=== PATIENT | male | born 1965 | race Caucasian/White ===

== ENCOUNTER 2016-09-16 14:22 | Inpatient (IN) ==
[2016-09-16] MEDS ORDERED: cloNIDine HCl 0.1 MG TABLET GTUBE PRN (19:16)
[2016-09-16] MEDS ORDERED: Ondansetron Oral Soln 2 MG/2.5 ML ORAL.SYG PO PRN (19:20)
[2016-09-16] MEDS: Ipratropium/Albuterol Neb 3 ML IH SCH (22:09)
[2016-09-16] MEDS: clonazePAM 0.5 MG TABLET GTUBE PRN (22:10)
[2016-09-16] MEDS: GuaiFENesin Liq 200 MG/10 ML UDC GTUBE SCH (23:45)
[2016-09-16] MEDS: Amantadine Oral Soln 50 MG/5 ML UDC GTUBE SCH (23:46)
[2016-09-16] MEDS: Vancomycin Oral Soln 250 MG/2.5 ML UDC GTUBE SCH (23:46)
[2016-09-17] MEDS: *HR* Heparin 5,000 UNIT/ML VIAL SQ SCH ×3 (05:45→21:07)
[2016-09-17] MEDS: GuaiFENesin Liq 200 MG/10 ML UDC GTUBE SCH ×2 (05:45→12:31)
[2016-09-17] MEDS: levETIRAcetam 500 MG/5 ML UDC GTUBE SCH ×2 (05:45→17:34)
[2016-09-17 06:10] LABS: Basophils # 0.1 K/mcL (0.0-0.2); Basophils % 0.9 %; Eosinophils # 0.4 K/mcL (0.0-0.6); Eosinophils % 3.9 %; Hematocrit 39.6 % (37.5-50.1); Hemoglobin 12.8 g/dL (12.9-16.9); Immature Granulocytes % 1.7 % (0-4); Lymphocytes # 2.8 K/mcL (0.6-4.6); Lymphocytes % 26.3 %; Mean Corpuscular HGB Conc 32.3 g/dL (31.6-35.5); Mean Corpuscular Hemoglobin 29.8 pg (28.0-33.3); Mean Corpuscular Volume 92.3 fL (83.0-100.0); Mean Platelet Volume 9.1 fL (9.4-12.4); Monocytes # 1.1 K/mcL (0.0-1.3); Monocytes % 10.7 %; Platelet Count 363 K/mcL (140-400); Red Blood Count 4.29 M/mcL (4.19-5.50); Segmented Neutrophils % 56.5 %
[2016-09-17 06:23] LABS: INR 1.1; Prothrombin Time 12.1 Seconds (9.4-12.1)
[2016-09-17 06:25] LABS: Activated Partial Thrombo Time 30.7 Seconds (26.0-36.0); BUN/Creatinine Ratio 22 (6-26); Blood Urea Nitrogen 19 mg/dL (8-26); Calcium 9.3 mg/dL (8.6-10.8); Carbon Dioxide 31 mEq/L (19-29); Chloride 96 mEq/L (98-109); Glucose 102 mg/dL (70-99); Osmolality,Calculated 282 (280-300); Potassium 4.7 mEq/L (3.5-4.5); Sodium 135 mEq/L (136-145); eGFR For African Americans > 60 (> 60); eGFR For Non-African Americans > 60 (> 60)
[2016-09-17] MEDS: Ipratropium/Albuterol Neb 3 ML IH SCH ×2 (09:36→21:07)
[2016-09-17] MEDS: Cyanocobalamin (B-12) 1,000 MCG TABLET GTUBE SCH (09:36)
[2016-09-17] MEDS: Amantadine Oral Soln 50 MG/5 ML UDC GTUBE SCH ×2 (09:36→21:07)
[2016-09-17] MEDS: Thiamine (B-1) 100 MG TABLET GTUBE SCH (09:37)
[2016-09-17] MEDS: Vancomycin Oral Soln 250 MG/2.5 ML UDC GTUBE SCH ×4 (09:43→21:07)
--- NOTE | 2016-09-17 10:39 | Internal Med History&Physical ---
Date of Encounter: 09/17/16 Time of Encounter: 10:33 Assessment and Plan (1) Intracerebral bleed Current visit: Yes Status: Acute Patient apparently used cocaine and had a intracerebral bleed. Qualifiers: Intracerebral hemorrhage etiology: nontraumatic Cerebral hemorrhage location: cerebral hemisphere, cortical portion Laterality: left Qualified Code(s): I61.1 - Nontraumatic intracerebral hemorrhage in hemisphere, cortical Internal Medicine - H&P: HPI Chief complaint: icb Admitted From: Hospital to Hospital Transfer Plans for Post Hospital Care: Home History of present illness: Mr. Thurman is a 51 year old male LAD and intracerebral bleed this left him with hemiparesis a phase EF and dysphagia. He has a PEG tube Past Med Surg Social Fam HX - Past Medical History Medical history: no medical history Psychiatric history: anxiety - Past Surgical History Surgical History: other - Social History Smoking Status: Current every day smoker Smokeless Tobacco Status: No Alcohol use: occasionally Drug use: cocaine, marijuana - Family History Mother History Unknown: Yes Father History Unknown: Yes Internal Medicine - H&P: Meds Allergies No Known Allergies Allergy (Verified 05/21/16 08:16) All Systems PM: A 10-system review of systems was performed and is negative for pertinent findings except as documented above in the HPI. - Constitutional Vitals: Temp Pulse Resp BP Pulse Ox 97.4 F L 66 18 98/58 96 09/17/16 07:01 09/17/16 07:01 09/17/16 07:01 09/17/16 07:01 09/17/16 07:01 - Head Head exam: Present: atraumatic, normal inspection, normocephalic - Neck Neck exam general surgery: Present: supple, trachea midline. Absent: lymphadenopathy Additional comments: Patient has a midline trach in place - Respiratory Respiratory exam: Present: CTAB. Absent: accessory muscle use, rales, rhonchi, wheezes - Cardiovascular Cardiovascular exam: Present: RRR, +S1, +S2. Absent: diastolic murmur, gallop, rubs, systolic murmur - GI/Abdominal GI/Abdominal exam: Present: normal bowel sounds, soft, no peritoneal signs. Absent: distended, tenderness Additional comments: PEG site looks clean and dry - Neurological Exam Neurological exam: Present: CN II-XII intact, motor sensory deficit, oriented X3 , no focal deficits. Absent: pronater drift, facial droop, speech deficit Additional comments: has right hemiplegia. He also has dysphagia and aphasia. Internal Med - H&P Results - Labs CBC & Chem 7: 09/17/16 05:55 09/17/16 05:55 Labs: Short CBC 09/17/16 Range/Units 05:55 WBC 10.5 (4.3-11.1) K/mcL Hgb 12.8 L (12.9-16.9) g/dL Hct 39.6 (37.5-50.1) % Plt Count 363 (140-400) K/mcL Neutrophils # 6.0 (1.6-8.9) K/mcL BMP 09/17/16 05:55 Sodium 135 L Potassium 4.7 H Chloride 96 L Carbon Dioxide 31 H BUN 19 Creatinine 0.88 Glucose 102 H Calcium 9.3 Lab looks stable
--- NOTE | 2016-09-17 15:38 | Physcial Medicine-Consult Note ---
Date of Encounter: 09/17/16 Time of Encounter: 15:34 Physical Medicine - AP (1) Intracerebral bleed Status: Acute Assessment and plan: 1. He is suffering from significant deficits following his intracerebral bleed. We will continue with intensive PT/OT/ST/TR to address transfers, ADLs, cognition, speech and swallow. Continue with overnight tube feeds. Plan to repeat barium swallow after trach is removed. Will try patient with a communication board to compensate for his aphasia and dysarthria. Estimated length of stay 4-6 weeks. Recommend patient be transferred to rehab for more intensive therapy. Code(s): I61.9 - Nontraumatic intracerebral hemorrhage, unspecified SNOMED Code(s): 712564859 (2) Right hemiparesis Status: Acute Code(s): G81.91 - Hemiplegia, unspecified affecting right dominant side SNOMED Code(s): 029985387 (3) Dysarthria Status: Acute Code(s): R47.1 - Dysarthria and anarthria SNOMED Code(s): 4929364 (4) Dysphagia Status: Acute Code(s): R13.10 - Dysphagia, unspecified SNOMED Code(s): 19811660 (5) Aphasia Status: Acute Code(s): R47.01 - Aphasia SNOMED Code(s): 76340968 Physical Medicine - HPI - Data of Consult Consult date: 09/17/16 Requesting Physician: Mark Mayorga DO Primary Care Provider: Savage Gonsales - Consult Narrative Reason for consult: s/p intraventricular hemmorhage History of present illness: Mr. Thurman is a 51 year old male with a past medical history of substance abuse who was found unresponsive by family at home. Patient was intubated at the scene. MRI performed which revealed a left basal ganglia hemorrhage with intraventricular hemorrhage with right hemiparesis, aphasia, and dysarthria. He required a prolonged vent wean and underwent tracheostomy and PEG placement and was transferred to [facility] for vent wean. He was subsequently weaned from the vent and transferred for inpatient rehabiliation. CC: Mark Mayorga DO Past Med Surg Social Fam HX - Past Medical History Medical history: no medical history Psychiatric history: anxiety - Past Surgical History Surgical History: other - Social History Smoking Status: Current every day smoker Smokeless Tobacco Status: No Alcohol use: occasionally Drug use: cocaine, marijuana - Family History Mother History Unknown: Yes Father History Unknown: Yes Medications and Allergies Allergies No Known Allergies Allergy (Verified 05/21/16 08:16) ROS unobtainable: due to mental status Review of systems: Patient able to nod yes and no to questions. Denies pain. Unable to obtain other ROS. Physical Medicine - Exam - Constitutional Vitals: Temp Pulse Resp BP Pulse Ox 97.4 F L 66 18 98/58 96 09/17/16 07:01 09/17/16 07:01 09/17/16 07:01 09/17/16 07:01 09/17/16 07:01 General appearance: thin Exam: Patient is seated in a wheelchair in the rehab gym. No acute distress. He is dysarthric, but attempts to state his name. He is able to make correct choices when given options regarding place and date. Able to follow 1 step commands. - Head Additional comments: No facial droop. - Neck Additional comments: Trach in place. No drainage. Trach is capped. - Respiratory Respiratory exam: Present: CTAB - Cardiovascular Cardiovascular exam: Present: RRR - GI/Abdominal GI/Abdominal exam: Present: soft. Absent: tenderness Additional comments: Caputo tube in place for tube feeds. - Extremities Exam Additional comments: Evaluation of the right upper and lower limb reveal reflexes are 2s. He has right shoulder shrug. No other volitional movement in the right upper limb. No pain with PROM of the right upper limb. No erythema or edema. Evaluation of the right lower limb reveals hip adduction 2/5, no other volitional movement. No calf pain, no erythema or edema on exam. Physical Medicine - Results - Labs CBC & Chem 7: 09/17/16 05:55 09/17/16 05:55 Labs: Short CBC 09/17/16 Range/Units 05:55 WBC 10.5 (4.3-11.1) K/mcL Hgb 12.8 L (12.9-16.9) g/dL Hct 39.6 (37.5-50.1) % Plt Count 363 (140-400) K/mcL Neutrophils # 6.0 (1.6-8.9) K/mcL BMP 09/17/16 05:55 Sodium 135 L Potassium 4.7 H Chloride 96 L Carbon Dioxide 31 H BUN 19 Creatinine 0.88 Glucose 102 H Calcium 9.3 Consult Discharge Plan - Plan Referrals: Andrae Conley MD [Primary Care Provider] -
[2016-09-18] MEDS: levETIRAcetam 500 MG/5 ML UDC GTUBE SCH ×2 (05:40→17:30)
[2016-09-18] MEDS: *HR* Heparin 5,000 UNIT/ML VIAL SQ SCH ×3 (05:40→21:01)
[2016-09-18] MEDS: Amantadine Oral Soln 50 MG/5 ML UDC GTUBE SCH ×2 (08:04→21:01)
[2016-09-18] MEDS: Cyanocobalamin (B-12) 1,000 MCG TABLET GTUBE SCH (08:04)
[2016-09-18] MEDS: Thiamine (B-1) 100 MG TABLET GTUBE SCH (08:05)
[2016-09-18] MEDS: Vancomycin Oral Soln 250 MG/2.5 ML UDC GTUBE SCH ×4 (08:09→21:00)
[2016-09-18] MEDS: Ipratropium/Albuterol Neb 3 ML IH SCH ×2 (09:22→21:01)
--- NOTE | 2016-09-18 13:39 | Internal Med Progress Note ---
Date of Encounter: 09/18/16 Time of Encounter: 13:37 - Assessment and plan (1) Intracerebral bleed Current Visit: Yes Status: Acute Assessment and plan: has a PEG tube and trach. His sats involvement in the 90s. He has had no restriction and/or stenosis. Several remove the trach today. Qualifiers: Intracerebral hemorrhage etiology: nontraumatic Cerebral hemorrhage location: cerebral hemisphere, cortical portion Laterality: left Qualified Code(s): I61.1 - Nontraumatic intracerebral hemorrhage in hemisphere, cortical - Time Spent With Patient less than 15 minutes - Constitutional Vitals: Temp Pulse Resp BP Pulse Ox 98.4 F 70 18 93/56 96 09/18/16 07:26 09/18/16 07:26 09/18/16 07:26 09/18/16 07:26 09/18/16 07:26 - Head Head exam: Present: atraumatic, normal inspection, normocephalic - Neck Neck exam general surgery: Present: supple, trachea midline. Absent: lymphadenopathy - Respiratory Respiratory exam: Present: CTAB. Absent: accessory muscle use, rales, rhonchi, wheezes - Cardiovascular Cardiovascular exam: Present: RRR, +S1, +S2. Absent: diastolic murmur, gallop, rubs, systolic murmur - GI/Abdominal GI/Abdominal exam: Present: normal bowel sounds, soft, no peritoneal signs. Absent: distended, tenderness Internal Medicine: Result - Labs CBC & Chem 7: 09/17/16 05:55 09/17/16 05:55 Labs: Lab is stable at this point - ABG Interpretation ABG results: PT/INR, D-dimer PT 12.1 Seconds (9.4-12.1) 09/17/16 05:55 Consult Discharge Plan - Plan Referrals: Andrae Conley MD [Primary Care Provider] -
[2016-09-19] MEDS: *HR* Heparin 5,000 UNIT/ML VIAL SQ SCH ×3 (06:24→20:12)
[2016-09-19] MEDS: levETIRAcetam 500 MG/5 ML UDC GTUBE SCH ×2 (06:25→18:37)
[2016-09-19] MEDS: Amantadine Oral Soln 50 MG/5 ML UDC GTUBE SCH ×2 (09:09→20:09)
[2016-09-19] MEDS: Cyanocobalamin (B-12) 1,000 MCG TABLET GTUBE SCH (09:10)
[2016-09-19] MEDS: Thiamine (B-1) 100 MG TABLET GTUBE SCH (09:10)
[2016-09-19] MEDS: Ipratropium/Albuterol Neb 3 ML IH SCH ×2 (09:10→20:12)
[2016-09-19] MEDS: Vancomycin Oral Soln 250 MG/2.5 ML UDC GTUBE SCH ×4 (09:13→20:11)
--- NOTE | 2016-09-19 22:47 | Internal Med Progress Note ---
Date of Encounter: 09/19/16 Time of Encounter: 22:44 - Assessment and plan (1) Intracerebral bleed Current Visit: Yes Status: Acute Assessment and plan: Right-sided. Plegia. Upper extremities worse than the left. Aphasia expressive noted.significant deficits following his intracerebral bleed. continue with intensive PT/OT/ST/TR to address transfers, ADLs, cognition, speech and swallow. Continue with overnight Jevity tube feeds. P Will try patient with a communication board to compensate for his aphasia and dysarthria. Qualifiers: Intracerebral hemorrhage etiology: nontraumatic Cerebral hemorrhage location: cerebral hemisphere, cortical portion Laterality: left Qualified Code(s): I61.1 - Nontraumatic intracerebral hemorrhage in hemisphere, cortical (2) Right hemiparesis Current Visit: Yes Status: Acute (3) Aphasia Current Visit: Yes Status: Acute - Time Spent With Patient 25 - 35 minutes - Subjective Interval history: No new complaint. Trach recently taken out. BP slightly low. - Constitutional Vitals: Temp Pulse Resp BP Pulse Ox 98.2 F 63 16 102/67 95 09/19/16 19:46 09/19/16 19:46 09/19/16 19:46 09/19/16 19:46 09/19/16 19:46 General appearance: Present: A&O X 2, no acute distress - Respiratory Respiratory exam: Present: CTAB. Absent: accessory muscle use, rales, rhonchi, wheezes - Cardiovascular Cardiovascular exam: Present: RRR, +S1, +S2. Absent: diastolic murmur, gallop, rubs, systolic murmur - GI/Abdominal GI/Abdominal exam: Present: normal bowel sounds, soft, no peritoneal signs. Absent: distended, tenderness - Neurological Exam Neurological exam: Present: alert (Right-sided flaccid. Upper extremities worse than the lower. Aphasia noted. Expressive. Follows command.) - Skin Skin exam: Present: dry, intact Internal Medicine: Result - Labs CBC & Chem 7: 09/17/16 05:55 09/17/16 05:55 - ABG Interpretation ABG results: PT/INR, D-dimer PT 12.1 Seconds (9.4-12.1) 09/17/16 05:55 Consult Discharge Plan - Plan Referrals: Andrae Conley MD [Primary Care Provider] -
--- NOTE | 2016-09-20 00:53 | Internal Med Progress Note ---
Date of Encounter: 09/20/16 Time of Encounter: 00:52 - Assessment and plan (1) Intracerebral bleed Current Visit: Yes Status: Acute Assessment and plan: Right-sided. Plegia. Upper extremities worse than the left. Aphasia expressive noted.significant deficits following his intracerebral bleed. continue with intensive PT/OT/ST/TR to address transfers, ADLs, cognition, speech and swallow. Continue with overnight Jevity tube feeds. P Will try patient with a communication board to compensate for his aphasia and dysarthria. Qualifiers: Intracerebral hemorrhage etiology: nontraumatic Cerebral hemorrhage location: cerebral hemisphere, cortical portion Laterality: left Qualified Code(s): I61.1 - Nontraumatic intracerebral hemorrhage in hemisphere, cortical (2) Right hemiparesis Current Visit: Yes Status: Acute (3) Aphasia Current Visit: Yes Status: Acute - Time Spent With Patient less than 15 minutes - Subjective Interval history: No new complaint. Trach recently taken out. Complains of generalized weakness. No shortness of breath. No chest pain. - Constitutional Vitals: Temp Pulse Resp BP Pulse Ox 98.2 F 63 16 102/67 95 09/19/16 19:46 09/19/16 19:46 09/19/16 19:46 09/19/16 19:46 09/19/16 19:46 General appearance: Present: A&O X 2, no acute distress - Respiratory Respiratory exam: Present: CTAB. Absent: accessory muscle use, rales, rhonchi, wheezes - Cardiovascular Cardiovascular exam: Present: RRR, +S1, +S2. Absent: diastolic murmur, gallop, rubs, systolic murmur - Extremities Exam Extremities exam: Present: warm, radial pulses palpable and symetrical. Absent : calf tenderness, cyanotic, pedal edema - Neurological Exam Additional comments: Expressive aphasia noted. Follows command. Right side flaccid. Internal Medicine: Result - Labs CBC & Chem 7: 09/17/16 05:55 09/17/16 05:55 - ABG Interpretation ABG results: PT/INR, D-dimer PT 12.1 Seconds (9.4-12.1) 09/17/16 05:55 Consult Discharge Plan - Plan Referrals: Andrae Conley MD [Primary Care Provider] -
[2016-09-20] MEDS: *HR* Heparin 5,000 UNIT/ML VIAL SQ SCH ×3 (05:46→20:28)
[2016-09-20] MEDS: levETIRAcetam 500 MG/5 ML UDC GTUBE SCH ×2 (05:46→18:35)
[2016-09-20] MEDS: Cyanocobalamin (B-12) 1,000 MCG TABLET GTUBE SCH (09:23)
[2016-09-20] MEDS: Ipratropium/Albuterol Neb 3 ML IH SCH ×2 (09:23→20:29)
[2016-09-20] MEDS: Thiamine (B-1) 100 MG TABLET GTUBE SCH (09:23)
[2016-09-20] MEDS: Amantadine Oral Soln 50 MG/5 ML UDC GTUBE SCH ×2 (09:23→20:27)
[2016-09-20] MEDS: Vancomycin Oral Soln 250 MG/2.5 ML UDC GTUBE SCH ×4 (09:25→20:27)
[2016-09-21] MEDS: levETIRAcetam 500 MG/5 ML UDC GTUBE SCH ×2 (05:49→17:30)
[2016-09-21] MEDS: *HR* Heparin 5,000 UNIT/ML VIAL SQ SCH ×3 (05:50→21:28)
[2016-09-21] MEDS: Thiamine (B-1) 100 MG TABLET GTUBE SCH (10:45)
[2016-09-21] MEDS: Cyanocobalamin (B-12) 1,000 MCG TABLET GTUBE SCH (10:45)
[2016-09-21] MEDS: Vancomycin Oral Soln 250 MG/2.5 ML UDC GTUBE SCH ×4 (10:45→21:27)
[2016-09-21] MEDS: Ipratropium/Albuterol Neb 3 ML IH SCH ×2 (10:46→21:28)
[2016-09-21] MEDS: Amantadine Oral Soln 50 MG/5 ML UDC GTUBE SCH ×2 (10:46→21:27)
--- NOTE | 2016-09-21 13:32 | Internal Med Progress Note ---
Date of Encounter: 09/21/16 Time of Encounter: 13:30 - Assessment and plan (1) Intracerebral bleed Current Visit: Yes Status: Acute Assessment and plan: Right-sided. Plegia. Upper extremities worse than the left. Aphasia expressive noted.significant deficits following his intracerebral bleed. continue with intensive PT/OT/ST/TR to address transfers, ADLs, cognition, speech and swallow. Continue with overnight Jevity tube feeds. P Will try patient with a communication board to compensate for his aphasia and dysarthria. Qualifiers: Intracerebral hemorrhage etiology: nontraumatic Cerebral hemorrhage location: cerebral hemisphere, cortical portion Laterality: left Qualified Code(s): I61.1 - Nontraumatic intracerebral hemorrhage in hemisphere, cortical (2) Right hemiparesis Current Visit: Yes Status: Acute (3) Aphasia Current Visit: Yes Status: Acute - Time Spent With Patient less than 15 minutes - Subjective Interval history: No new complaint. Complains of generalized weakness. No shortness of breath. No chest pain. - Constitutional Vitals: Temp Pulse Resp BP Pulse Ox 98.5 F 57 18 108/67 97 09/21/16 07:19 09/21/16 07:19 09/21/16 07:19 09/21/16 07:19 09/21/16 07:19 General appearance: Present: cachectic, A&O X 2, no acute distress - Respiratory Respiratory exam: Present: CTAB. Absent: accessory muscle use, rales, rhonchi, wheezes - Cardiovascular Cardiovascular exam: Present: RRR, +S1, +S2. Absent: diastolic murmur, gallop, rubs, systolic murmur - GI/Abdominal GI/Abdominal exam: Present: normal bowel sounds, soft, no peritoneal signs. Absent: distended, tenderness Internal Medicine: Result - Labs CBC & Chem 7: 09/17/16 05:55 09/17/16 05:55 - ABG Interpretation ABG results: PT/INR, D-dimer PT 12.1 Seconds (9.4-12.1) 09/17/16 05:55 Consult Discharge Plan - Plan Referrals: Andrae Conley MD [Primary Care Provider] -
[2016-09-22] MEDS: *HR* Heparin 5,000 UNIT/ML VIAL SQ SCH ×3 (05:49→22:14)
[2016-09-22] MEDS: levETIRAcetam 500 MG/5 ML UDC GTUBE SCH ×2 (05:49→17:10)
[2016-09-22 06:07] LABS: Basophils # 0.1 K/mcL (0.0-0.2); Eosinophils # 0.4 K/mcL (0.0-0.6); Eosinophils % 5.4 %; Hematocrit 38.8 % (37.5-50.1); Hemoglobin 12.7 g/dL (12.9-16.9); Immature Granulocytes % 0.4 % (0-4); Lymphocytes # 2.6 K/mcL (0.6-4.6); Lymphocytes % 35.8 %; Mean Corpuscular HGB Conc 32.7 g/dL (31.6-35.5); Mean Corpuscular Hemoglobin 30.5 pg (28.0-33.3); Mean Platelet Volume 9.5 fL (9.4-12.4); Monocytes # 0.6 K/mcL (0.0-1.3); Monocytes % 8.7 %; Neutrophils # 3.5 K/mcL (1.6-8.9); Platelet Count 362 K/mcL (140-400); Red Blood Count 4.17 M/mcL (4.19-5.50); Red Cell Distribution Width 15.5 % (11.5-14.5); Segmented Neutrophils % 48.7 %
[2016-09-22 06:10] LABS: INR 1.1; Prothrombin Time 11.4 Seconds (9.4-12.1)
[2016-09-22 06:13] LABS: Activated Partial Thrombo Time 30.6 Seconds (26.0-36.0)
[2016-09-22 06:17] LABS: BUN/Creatinine Ratio 25 (6-26); Blood Urea Nitrogen 21 mg/dL (8-26); Calcium 9.7 mg/dL (8.6-10.8); Carbon Dioxide 30 mEq/L (19-29); Chloride 98 mEq/L (98-109); Glucose 95 mg/dL (70-99); Osmolality,Calculated 293 (280-300); Potassium 4.4 mEq/L (3.5-4.5); Sodium 140 mEq/L (136-145); eGFR For African Americans > 60 (> 60); eGFR For Non-African Americans > 60 (> 60)
[2016-09-22] MEDS: Thiamine (B-1) 100 MG TABLET GTUBE SCH (09:25)
[2016-09-22] MEDS: Amantadine Oral Soln 50 MG/5 ML UDC GTUBE SCH ×2 (09:26→22:14)
[2016-09-22] MEDS: Cyanocobalamin (B-12) 1,000 MCG TABLET GTUBE SCH (09:26)
[2016-09-22] MEDS: Ipratropium/Albuterol Neb 3 ML IH SCH ×2 (09:26→22:14)
--- NOTE | 2016-09-22 15:08 | Internal Med Progress Note ---
Date of Encounter: 09/22/16 Time of Encounter: 15:06 - Assessment and plan (1) Intracerebral bleed Current Visit: Yes Status: Acute Assessment and plan: Patient had an intracerebral bleed and so far we have removed his trach and tomorrow's a barium swallow and he is working with therapy for his right-sided weakness Qualifiers: Intracerebral hemorrhage etiology: nontraumatic Cerebral hemorrhage location: cerebral hemisphere, cortical portion Laterality: left Qualified Code(s): I61.1 - Nontraumatic intracerebral hemorrhage in hemisphere, cortical - Time Spent With Patient less than 15 minutes - Subjective Interval history: Patient's breathing okay without his trach. He is scheduled tomorrow for a barium swallow and at that time maybe we can advance his diet. Staff reports patient is not particularly motivated. - Constitutional Vitals: Temp Pulse Resp BP Pulse Ox 97.9 F 58 18 99/63 96 09/22/16 06:54 09/22/16 06:54 09/22/16 06:54 09/22/16 13:44 09/22/16 06:54 General appearance: Present: cachectic, A&O X 2, no acute distress - Head Head exam: Present: atraumatic, normal inspection, normocephalic - Neck Neck exam general surgery: Present: supple, trachea midline. Absent: lymphadenopathy - Respiratory Respiratory exam: Present: CTAB. Absent: accessory muscle use, rales, rhonchi, wheezes - Cardiovascular Cardiovascular exam: Present: RRR, +S1, +S2. Absent: diastolic murmur, gallop, rubs, systolic murmur - GI/Abdominal GI/Abdominal exam: Present: normal bowel sounds, soft, no peritoneal signs. Absent: distended, tenderness Internal Medicine: Result - Labs CBC & Chem 7: 09/22/16 05:00 09/22/16 05:00 Labs: Short CBC 09/22/16 Range/Units 05:00 WBC 7.2 (4.3-11.1) K/mcL Hgb 12.7 L (12.9-16.9) g/dL Hct 38.8 (37.5-50.1) % Plt Count 362 (140-400) K/mcL Neutrophils # 3.5 (1.6-8.9) K/mcL BMP 09/22/16 05:00 Sodium 140 Potassium 4.4 Chloride 98 Carbon Dioxide 30 H BUN 21 Creatinine 0.83 Glucose 95 Calcium 9.7 Lab looks generally stable - ABG Interpretation ABG results: PT/INR, D-dimer PT 11.4 Seconds (9.4-12.1) 09/22/16 05:00 Consult Discharge Plan - Plan Referrals: Andrae Conley MD [Primary Care Provider] -
[2016-09-23] MEDS: *HR* Heparin 5,000 UNIT/ML VIAL SQ SCH ×3 (06:15→20:00)
[2016-09-23] MEDS: levETIRAcetam 500 MG/5 ML UDC GTUBE SCH ×2 (06:15→17:57)
[2016-09-23] MEDS: Amantadine Oral Soln 50 MG/5 ML UDC GTUBE SCH ×2 (07:59→20:00)
[2016-09-23] MEDS: Cyanocobalamin (B-12) 1,000 MCG TABLET GTUBE SCH (07:59)
[2016-09-23] MEDS: Thiamine (B-1) 100 MG TABLET GTUBE SCH (08:00)
[2016-09-23] MEDS: Ipratropium/Albuterol Neb 3 ML IH SCH ×2 (12:51→20:01)
--- NOTE | 2016-09-23 14:09 | Internal Med Progress Note ---
Date of Encounter: 09/23/16 Time of Encounter: 14:08 - Assessment and plan (1) Intracerebral bleed Current Visit: Yes Status: Acute Assessment and plan: Patient's here for rehabilitation still has right-sided weakness E PT OT notes. Qualifiers: Intracerebral hemorrhage etiology: nontraumatic Cerebral hemorrhage location: cerebral hemisphere, cortical portion Laterality: left Qualified Code(s): I61.1 - Nontraumatic intracerebral hemorrhage in hemisphere, cortical - Time Spent With Patient less than 15 minutes - Subjective Interval history: Cc pathology [place] but the radiologist read is no aspiration. - Constitutional Vitals: Temp Pulse Resp BP Pulse Ox 98.0 F 58 16 109/74 96 09/23/16 07:21 09/23/16 07:21 09/22/16 18:57 09/23/16 07:21 09/23/16 07:21 General appearance: Present: cachectic, A&O X 2, no acute distress - Head Head exam: Present: atraumatic, normal inspection, normocephalic - Neck Neck exam general surgery: Present: supple, trachea midline. Absent: lymphadenopathy - Respiratory Respiratory exam: Present: CTAB. Absent: accessory muscle use, rales, rhonchi, wheezes - Cardiovascular Cardiovascular exam: Present: RRR, +S1, +S2. Absent: diastolic murmur, gallop, rubs, systolic murmur Internal Medicine: Result - Labs CBC & Chem 7: 09/22/16 05:00 09/22/16 05:00 Labs: Lab is stable - ABG Interpretation ABG results: PT/INR, D-dimer PT 11.4 Seconds (9.4-12.1) 09/22/16 05:00 - Impressions Impressions Videofluoroscopic Swallow 09/23/16 15:31 IMPRESSION: Mild region of penetration with use of thin barium and puree. No evidence of aspiration. Please see separate speech pathology report for full discussion of findings and recommendations. D/ / 09/23/2016 11:11:32 Fede Huang MD / Priscila Marrero Interpreting Provider: Fede Huang MD Consult Discharge Plan - Plan Referrals: Andrae Conley MD [Primary Care Provider] -
[2016-09-24] MEDS: levETIRAcetam 500 MG/5 ML UDC GTUBE SCH ×2 (05:25→16:30)
[2016-09-24] MEDS: *HR* Heparin 5,000 UNIT/ML VIAL SQ SCH ×3 (05:25→22:52)
[2016-09-24] MEDS: Cyanocobalamin (B-12) 1,000 MCG TABLET GTUBE SCH (07:48)
[2016-09-24] MEDS: Thiamine (B-1) 100 MG TABLET GTUBE SCH (07:48)
[2016-09-24] MEDS: Amantadine Oral Soln 50 MG/5 ML UDC GTUBE SCH ×2 (07:48→22:52)
[2016-09-24] MEDS: Ipratropium/Albuterol Neb 3 ML IH SCH ×2 (10:15→22:52)
--- NOTE | 2016-09-24 13:50 | Physical Med Progress Note ---
Date of Encounter: 10/02/16 Time of Encounter: 13:43 Assessment and Plan (1) Intracerebral bleed Current Visit: Yes Status: Acute Qualifiers: Intracerebral hemorrhage etiology: nontraumatic Cerebral hemorrhage location: cerebral hemisphere, cortical portion Laterality: left Qualified Code(s): I61.1 - Nontraumatic intracerebral hemorrhage in hemisphere, cortical (2) Right hemiparesis Current Visit: Yes Status: Acute (3) Dysarthria Current Visit: Yes Status: Acute (4) Dysphagia Current Visit: Yes Status: Acute Qualifiers: Dysphagia type: unspecified Qualified Code(s): R13.10 - Dysphagia, unspecified (5) Aphasia Current Visit: Yes Status: Acute Physical Medicine-PN: Subj Interval history: PMR PCC note Mr. Thurman has difficulty engaging with therapists. He is able to perform simple math, inconsistent with his responses. Fatigue causes a decline in function. He has improved with accurate choice of 2-80% correct. He is currently on a dysphagia II diet with thin liquids. He has ambulated in parallel bars with manual advancement of his plegic side. He has begun to get return in the right upper limb, but patient refuses to participate with therapies. Patient appears to be suffering from depression, will start him on celexa. Would recommend decreasing seroquel to bid and titrating down as tolerated. Plan for 4 week stay to continue to address cognition, speech, swallow, ambulation, transfers and ADLs. - Constitutional Vitals: Vital Signs Temp Pulse Resp BP Pulse Ox 09/24/16 06:56 98.2 F 61 18 111/71 96 09/23/16 19:00 97.9 F 65 15 105/66 95 Intake and Output 09/23/16 09/24/16 09/24/16 23:59 07:59 15:59 Intake Total 400 / 400 1400 / 1400 480 / 480 Balance 400 / 400 1400 / 1400 480 / 480 Intake: Oral 480 / 480 Tube Feeding 1000 / 1000 Free Water 200 / 200 200 / 200 Free Water Intake Amount 200 / 200 200 / 200 Other: Meal Breakfast Percent of Meal Consumed 95% Stool Size Large Stool Consistency loose Stool Color Brown # Urine Diapers 1 1 1 # Bowel Movement Diapers 1 Physical Medicine-PN: Obj Data - Labs CBC & Chem 7: 10/06/16 04:35 10/06/16 04:35 - ABG Interpretation ABG results: PT/INR, D-dimer PT 11.4 Seconds (9.4-12.1) 09/22/16 05:00 Consult Discharge Plan - Plan Referrals: Andrae Conley MD [Primary Care Provider] -
--- NOTE | 2016-09-24 14:34 | Psychological Evaluation ---
Date of Encounter: 09/24/16 Time of Encounter: 10:10 History of Present Illness History of present illness: Mr. Thurman is a 51 year old male admitted to [facility] for inpatient physical rehabilitation after an intracerebral bleed. The bleed is believed to be a result of cocaine use. He was seen on this date to assess his current cognitive and emotional functioning. Past Medical History Medical history: There is no significant medical history. - Psychiatric History Additional Psychiatric History: Medical records indicate a history of anxiety. There is no known psychiatric hospitalization. No known family history of psychiatric or mental health issues. Home Medications and Allergies Allergies No Known Allergies Allergy (Verified 05/21/16 08:16) Social History - Social History Social History: Mr. Thurman's aphasia impeded his ability to answer personal questions. He indicated "yea" that he was (he is not but was living with his girlfriend). He was unable to provide his girlfriend's name and unable to state how many children he has (initially said two but later said three). Unable to obtain information regarding psychosocial history. - Tobacco Use Smoking Status: Current every day smoker - Alcohol Use Alcohol Use: occasionally (Mr. Thurman also used cocaine and smoked marijuana.) Cognitive/Emotional Assessment - Cognitive Ability Additional Findings: Mr. Thurman was alert and attentive. He responded "yeah" to "Is your name Konstantin Thurman?" and was able to point to his month of from a choice of three. He was unable to identify his year of and responded "none of them" from a choice of three. He was able to state his age "52". Mr. Thurman was able to accurately name 3 out of 4 items and he was able to do simple arithmetic. On a task of auditory comprehension/following simple commands, he was able to perform correctly initially but during the second half of the activity, he gave random responses and simply said "yeah". He made attempts to verbalize. Speech was noted to be muffled and at times unintelligible. Mr. Thurman used a wheelchair for ambulation and was able to go from the physical therapy gym to his room on his own. - Emotional Status Additional Findings: Mr. Thurman denied experiencing any pain sensation and did not appear to be in any pain or discomfort. He displayed restricted facial expression and flat affect. There were no signs of anxiety, anger, sadness or frustration. Assessment & Plan - Treatment Plan Treatment Plan/Recommendations: Will follow Mr. Thurman while he is a patient at [facility] to monitor for signs of agitation or emotional distress as his awareness of his cognitive/language deficits increases. Procedures - Session Time Session Start Time: 10:10 Session Stop Time: 10:30
--- NOTE | 2016-09-24 14:50 | Internal Med Progress Note ---
Date of Encounter: 09/24/16 Time of Encounter: 14:48 - Assessment and plan (1) Intracerebral bleed Current Visit: Yes Status: Acute Assessment and plan: Patient had an intracerebral bleed which I think is improving due to his lack of agitation. He is somewhat a motivated but were continuing to work with him. Qualifiers: Intracerebral hemorrhage etiology: nontraumatic Cerebral hemorrhage location: cerebral hemisphere, cortical portion Laterality: left Qualified Code(s): I61.1 - Nontraumatic intracerebral hemorrhage in hemisphere, cortical - Time Spent With Patient less than 15 minutes - Subjective Interval history: The patient got through his first meal last evening and lunch today. He slowly improving. He is not at all motivated. I am her reduce his Seroquel because the staff feels he is indifferent at times and this could be due to the medication. This was started when he was very agitated and he has calmed down considerably now I think now that the brain irritation some slowly improved - Constitutional Vitals: Temp Pulse Resp BP Pulse Ox 98.2 F 61 18 111/71 96 09/24/16 06:56 09/24/16 06:56 09/24/16 06:56 09/24/16 06:56 09/24/16 06:56 General appearance: Present: cachectic, A&O X 2, no acute distress - Head Head exam: Present: atraumatic, normal inspection, normocephalic - Neck Neck exam general surgery: Present: supple, trachea midline. Absent: lymphadenopathy - Respiratory Respiratory exam: Present: CTAB. Absent: accessory muscle use, rales, rhonchi, wheezes - Cardiovascular Cardiovascular exam: Present: RRR, +S1, +S2. Absent: diastolic murmur, gallop, rubs, systolic murmur - GI/Abdominal GI/Abdominal exam: Present: normal bowel sounds, soft, no peritoneal signs. Absent: distended, tenderness Internal Medicine: Result - Labs CBC & Chem 7: 09/22/16 05:00 09/22/16 05:00 Labs: Lab is okay - ABG Interpretation ABG results: PT/INR, D-dimer PT 11.4 Seconds (9.4-12.1) 09/22/16 05:00 Consult Discharge Plan - Plan Referrals: Andrae Conley MD [Primary Care Provider] -
[2016-09-25] MEDS: levETIRAcetam 500 MG/5 ML UDC GTUBE SCH ×2 (06:50→17:58)
[2016-09-25] MEDS: *HR* Heparin 5,000 UNIT/ML VIAL SQ SCH ×3 (06:50→21:54)
[2016-09-25] MEDS: Cyanocobalamin (B-12) 1,000 MCG TABLET GTUBE SCH (09:11)
[2016-09-25] MEDS: Thiamine (B-1) 100 MG TABLET GTUBE SCH (09:12)
[2016-09-25] MEDS: Amantadine Oral Soln 50 MG/5 ML UDC GTUBE SCH (09:12)
[2016-09-25] MEDS: Ipratropium/Albuterol Neb 3 ML IH SCH ×3 (09:13→22:04)
--- NOTE | 2016-09-25 14:42 | Internal Med Progress Note ---
Date of Encounter: 09/25/16 Time of Encounter: 14:40 - Assessment and plan (1) Intracerebral bleed Current Visit: Yes Status: Acute Qualifiers: Intracerebral hemorrhage etiology: nontraumatic Cerebral hemorrhage location: cerebral hemisphere, cortical portion Laterality: left Qualified Code(s): I61.1 - Nontraumatic intracerebral hemorrhage in hemisphere, cortical - Subjective Interval history: Changes in meds have not made much difference at this point at least negative differences. Patient is eating his meals still with caution according to our speech department and still refuses to do the exercises they recommend. - Constitutional Vitals: Temp Pulse Resp BP Pulse Ox 98.1 F 61 20 121/81 100 09/25/16 07:04 09/25/16 07:04 09/25/16 07:04 09/25/16 07:04 09/25/16 07:04 General appearance: Present: cachectic, A&O X 2, no acute distress - Head Head exam: Present: atraumatic, normal inspection, normocephalic - Neck Neck exam general surgery: Present: supple, trachea midline. Absent: lymphadenopathy - Respiratory Respiratory exam: Present: CTAB. Absent: accessory muscle use, rales, rhonchi, wheezes - Cardiovascular Cardiovascular exam: Present: RRR, +S1, +S2. Absent: diastolic murmur, gallop, rubs, systolic murmur Internal Medicine: Result - Labs CBC & Chem 7: 09/22/16 05:00 09/22/16 05:00 - ABG Interpretation ABG results: PT/INR, D-dimer PT 11.4 Seconds (9.4-12.1) 09/22/16 05:00 Consult Discharge Plan - Plan Referrals: Andrae Conley MD [Primary Care Provider] -
[2016-09-25] MEDS ORDERED: *HR* OxyCODONE/APAP 10/325 TABLET PO ONE (19:21)
[2016-09-25] MEDS: clonazePAM 0.5 MG TABLET GTUBE PRN (21:54)
[2016-09-26] MEDS ORDERED: clonazePAM 0.5 MG TABLET PO PRN (04:23)
[2016-09-26] MEDS ORDERED: cloNIDine HCl 0.1 MG TABLET PO PRN (04:24)
[2016-09-26] MEDS: *HR* Heparin 5,000 UNIT/ML VIAL SQ SCH ×3 (05:32→21:52)
[2016-09-26] MEDS: levETIRAcetam 250 MG TABLET PO SCH ×2 (05:51→17:08)
[2016-09-26] MEDS ORDERED: levETIRAcetam 500 MG/5 ML UDC PO SCH ×2 (06:00→09:00)
[2016-09-26] MEDS ORDERED: levETIRAcetam 500 MG/5 ML UDC GTUBE SCH (06:00)
[2016-09-26] MEDS: Thiamine (B-1) 100 MG TABLET PO SCH (09:31)
[2016-09-26] MEDS: Cyanocobalamin (B-12) 1,000 MCG TABLET PO SCH (09:31)
[2016-09-26] MEDS: Ipratropium/Albuterol Neb 3 ML IH SCH ×2 (09:31→22:05)
--- NOTE | 2016-09-26 11:46 | Internal Med Progress Note ---
Date of Encounter: 09/26/16 Time of Encounter: 11:44 - Assessment and plan (1) Intracerebral bleed Current Visit: Yes Status: Acute Assessment and plan: Patient appears to be stable and getting a comparison study to see if there are any acute changes. Otherwise things have settled down and he is working with therapist. We have a problem he has no power of assistant county attorney and he is right handed and illiterate so he can sign his name but not much other than that. So we will make adjustments. Qualifiers: Intracerebral hemorrhage etiology: nontraumatic Cerebral hemorrhage location: cerebral hemisphere, cortical portion Laterality: left Qualified Code(s): I61.1 - Nontraumatic intracerebral hemorrhage in hemisphere, cortical - Time Spent With Patient less than 15 minutes - Subjective Interval history: She continued to complain yesterday about cephalgia. So I repeated the CAT scan to make sure there is no new bleed or increased mass effect. The radiologist did not have comparison which I am attempting to obtain today and because of that they could not tell if there are any subtle changes. The radiologist felt that due to the lack of brightness that the bleed that he saw in the changes that he noted are subacute which may mean there was nothing new. - Constitutional Vitals: Temp Pulse Resp BP Pulse Ox 97.9 F 70 16 114/74 96 09/26/16 06:53 09/26/16 06:53 09/26/16 06:53 09/26/16 06:53 09/26/16 06:53 General appearance: Present: cachectic, A&O X 2, no acute distress - Head Head exam: Present: atraumatic, normocephalic - Neck Neck exam general surgery: Present: supple, trachea midline. Absent: lymphadenopathy - Respiratory Respiratory exam: Present: CTAB. Absent: accessory muscle use, rales, rhonchi, wheezes - Cardiovascular Cardiovascular exam: Present: RRR, +S1, +S2. Absent: diastolic murmur, gallop, rubs, systolic murmur - GI/Abdominal GI/Abdominal exam: Present: normal bowel sounds, soft, no peritoneal signs. Absent: distended, tenderness Internal Medicine: Result - Labs CBC & Chem 7: 09/22/16 05:00 09/22/16 05:00 Labs: Lab is stable - ABG Interpretation ABG results: PT/INR, D-dimer PT 11.4 Seconds (9.4-12.1) 09/22/16 05:00 - Impressions Impressions Head CT 09/25/16 18:32 IMPRESSION: Compared to the CT dated 04/24/16, there is new area of acute or subacute hemorrhage with surrounding vasogenic edema centered in the left thalamus with mild mass effect causing 4 mm [id number] midline shift and new mild hydrocephalus of the lateral and 3rd ventricles. The basal cisterns are intact. This is most concerning for hypertensive related hemorrhage. After speaking with the caregiver, this hemorrhage is apparently known. However the outside images have not been uploaded and only the prior report is available at this time. According to report, the hemorrhage may be stable. However uploading the outside images is still recommended for comparison. Findings were discussed with Mark Mayorga at 7:27 pm on 09/25/2016. D/ / Miguel Perez MD / Miguel Perez MD Interpreting Provider: Miguel Perez MD Consult Discharge Plan - Plan Referrals: Andrae Conley MD [Primary Care Provider] -
[2016-09-27] MEDS: levETIRAcetam 250 MG TABLET PO SCH ×2 (06:07→18:59)
[2016-09-27] MEDS: *HR* Heparin 5,000 UNIT/ML VIAL SQ SCH ×3 (06:08→21:52)
--- NOTE | 2016-09-27 09:21 | Internal Med Progress Note ---
Date of Encounter: 09/27/16 Time of Encounter: 09:20 - Assessment and plan (1) Intracerebral bleed Current Visit: Yes Status: Acute Assessment and plan: Patient appears to be stable and getting a comparison study to see if there are any acute changes. Otherwise things have settled down and he is working with therapist. We have a problem he has no power of state's attorney and he is right handed and illiterate so he can sign his name but not much other than that. So we will make adjustments. Qualifiers: Intracerebral hemorrhage etiology: nontraumatic Cerebral hemorrhage location: cerebral hemisphere, cortical portion Laterality: left Qualified Code(s): I61.1 - Nontraumatic intracerebral hemorrhage in hemisphere, cortical (2) Right hemiparesis Current Visit: Yes Status: Acute (3) Aphasia Current Visit: Yes Status: Acute - Subjective Interval history: No new complaint. Complains of generalized weakness. No shortness of breath. No chest pain. Feeding self. - Constitutional Vitals: Temp Pulse Resp BP Pulse Ox 97.3 F L 59 20 95/61 94 09/27/16 07:00 09/27/16 07:00 09/27/16 07:00 09/27/16 07:00 09/27/16 07:00 General appearance: Present: cachectic, A&O X 2, no acute distress - Respiratory Respiratory exam: Present: CTAB. Absent: accessory muscle use, rales, rhonchi, wheezes - Cardiovascular Cardiovascular exam: Present: RRR, +S1, +S2. Absent: diastolic murmur, gallop, rubs, systolic murmur - Extremities Exam Extremities exam: Present: warm, radial pulses palpable and symetrical. Absent : calf tenderness, cyanotic, pedal edema - Neurological Exam Neurological exam: Present: alert, speech deficit Internal Medicine: Result - Labs CBC & Chem 7: 09/22/16 05:00 09/22/16 05:00 - ABG Interpretation ABG results: PT/INR, D-dimer PT 11.4 Seconds (9.4-12.1) 09/22/16 05:00 Consult Discharge Plan - Plan Referrals: Andrae Conley MD [Primary Care Provider] -
[2016-09-27] MEDS: Ipratropium/Albuterol Neb 3 ML IH SCH ×2 (11:05→21:52)
[2016-09-27] MEDS: Cyanocobalamin (B-12) 1,000 MCG TABLET PO SCH (11:05)
[2016-09-27] MEDS: Thiamine (B-1) 100 MG TABLET PO SCH (11:05)
[2016-09-28] MEDS: levETIRAcetam 250 MG TABLET PO SCH ×2 (05:38→17:46)
[2016-09-28] MEDS: *HR* Heparin 5,000 UNIT/ML VIAL SQ SCH ×3 (05:38→21:22)
[2016-09-28] MEDS: Thiamine (B-1) 100 MG TABLET PO SCH (08:53)
[2016-09-28] MEDS: Cyanocobalamin (B-12) 1,000 MCG TABLET PO SCH (08:53)
[2016-09-28] MEDS: Ipratropium/Albuterol Neb 3 ML IH SCH (08:54)
[2016-09-28] MEDS ORDERED: Ipratropium/Albuterol Neb 3 ML IH PRN (10:25)
--- NOTE | 2016-09-28 10:38 | Internal Med Progress Note ---
Date of Encounter: 09/28/16 Time of Encounter: 10:36 - Assessment and plan (1) Intracerebral bleed Current Visit: Yes Status: Acute Assessment and plan: Well we are progressing although he refuses to do exercises recommended by speech and is working with PT and OT regarding his right hemiparesis Qualifiers: Intracerebral hemorrhage etiology: nontraumatic Cerebral hemorrhage location: cerebral hemisphere, cortical portion Laterality: left Qualified Code(s): I61.1 - Nontraumatic intracerebral hemorrhage in hemisphere, cortical - Time Spent With Patient less than 15 minutes - Subjective Interval history: Nurses are reporting bizarre behavior. Playing and feces etc. So I am increasing his Seroquel from once a day to twice a day - Constitutional Vitals: Temp Pulse Resp BP Pulse Ox 97.6 F 71 16 108/69 96 09/28/16 07:32 09/28/16 07:32 09/28/16 07:32 09/28/16 07:32 09/28/16 07:32 General appearance: Present: cachectic, A&O X 2, no acute distress - Head Head exam: Present: atraumatic, normal inspection, normocephalic - Neck Neck exam general surgery: Present: supple, trachea midline. Absent: lymphadenopathy - Respiratory Respiratory exam: Present: CTAB. Absent: accessory muscle use, rales, rhonchi, wheezes - Cardiovascular Cardiovascular exam: Present: RRR, +S1, +S2. Absent: diastolic murmur, gallop, rubs, systolic murmur Internal Medicine: Result - Labs CBC & Chem 7: 09/22/16 05:00 09/22/16 05:00 Labs: Labs stable - ABG Interpretation ABG results: PT/INR, D-dimer PT 11.4 Seconds (9.4-12.1) 09/22/16 05:00 Consult Discharge Plan - Plan Referrals: Andrae Conley MD [Primary Care Provider] -
[2016-09-28] MEDS ORDERED: *HR* HYDROcodone/Acet 7.5/325 mg TABLET PO PRN (18:05)
[2016-09-29 06:10] LABS: Basophils # 0.1 K/mcL (0.0-0.2); Basophils % 0.8 %; Eosinophils # 0.5 K/mcL (0.0-0.6); Eosinophils % 6.4 %; Hematocrit 37.4 % (37.5-50.1); Hemoglobin 12.3 g/dL (12.9-16.9); Immature Granulocytes % 0.5 % (0-4); Lymphocytes # 2.8 K/mcL (0.6-4.6); Lymphocytes % 38.4 %; Mean Corpuscular HGB Conc 32.9 g/dL (31.6-35.5); Mean Corpuscular Volume 94.2 fL (83.0-100.0); Mean Platelet Volume 9.6 fL (9.4-12.4); Monocytes # 0.8 K/mcL (0.0-1.3); Monocytes % 10.3 %; Neutrophils # 3.2 K/mcL (1.6-8.9); Platelet Count 287 K/mcL (140-400); Red Blood Count 3.97 M/mcL (4.19-5.50); Red Cell Distribution Width 15.6 % (11.5-14.5); Segmented Neutrophils % 43.6 %
[2016-09-29 06:11] LABS: Activated Partial Thrombo Time 30.1 Seconds (26.0-36.0)
[2016-09-29 06:23] LABS: BUN/Creatinine Ratio 23 (6-26); Blood Urea Nitrogen 17 mg/dL (8-26); Calcium 9.6 mg/dL (8.6-10.8); Carbon Dioxide 26 mEq/L (19-29); Chloride 101 mEq/L (98-109); Glucose 76 mg/dL (70-99); Osmolality,Calculated 284 (280-300); Potassium 4.2 mEq/L (3.5-4.5); Sodium 137 mEq/L (136-145); eGFR For African Americans > 60 (> 60); eGFR For Non-African Americans > 60 (> 60)
[2016-09-29] MEDS: levETIRAcetam 250 MG TABLET PO SCH ×2 (06:30→17:11)
[2016-09-29] MEDS: *HR* Heparin 5,000 UNIT/ML VIAL SQ SCH ×3 (06:30→21:22)
[2016-09-29] MEDS: Cyanocobalamin (B-12) 1,000 MCG TABLET PO SCH (09:01)
[2016-09-29] MEDS: Thiamine (B-1) 100 MG TABLET PO SCH (09:02)
--- NOTE | 2016-09-29 15:35 | Internal Med Progress Note ---
Date of Encounter: 09/29/16 Time of Encounter: 15:33 - Assessment and plan (1) Intracerebral bleed Current Visit: Yes Status: Acute Assessment and plan: Repeat CT showed no acute change. Still the process of getting the old discs but they are in the mail. Qualifiers: Intracerebral hemorrhage etiology: nontraumatic Cerebral hemorrhage location: cerebral hemisphere, cortical portion Laterality: left Qualified Code(s): I61.1 - Nontraumatic intracerebral hemorrhage in hemisphere, cortical - Time Spent With Patient less than 15 minutes - Subjective Interval history: Nurses are reporting bizarre behavior. Playing with feces etc. So I am increasing his Seroquel from once a day to twice a day - Constitutional Vitals: Temp Pulse Resp BP Pulse Ox 96.2 F L 64 17 107/72 96 09/29/16 07:00 09/29/16 10:13 09/29/16 10:13 09/29/16 10:13 09/29/16 10:13 General appearance: Present: cachectic, A&O X 2, no acute distress - Head Head exam: Present: atraumatic, normal inspection, normocephalic - Neck Neck exam general surgery: Present: supple, trachea midline. Absent: lymphadenopathy - Respiratory Respiratory exam: Present: CTAB. Absent: accessory muscle use, rales, rhonchi, wheezes - Cardiovascular Cardiovascular exam: Present: RRR, +S1, +S2. Absent: diastolic murmur, gallop, rubs, systolic murmur Internal Medicine: Result - Labs CBC & Chem 7: 09/29/16 04:50 09/29/16 04:50 Labs: Short CBC 09/29/16 Range/Units 04:50 WBC 7.3 (4.3-11.1) K/mcL Hgb 12.3 L (12.9-16.9) g/dL Hct 37.4 L (37.5-50.1) % Plt Count 287 (140-400) K/mcL Neutrophils # 3.2 (1.6-8.9) K/mcL BMP 09/29/16 04:50 Sodium 137 Potassium 4.2 Chloride 101 Carbon Dioxide 26 BUN 17 Creatinine 0.73 Glucose 76 Calcium 9.6 Lab is stable - ABG Interpretation ABG results: PT/INR, D-dimer PT 11.0 Seconds (9.4-12.1) 09/29/16 04:50 Consult Discharge Plan - Plan Referrals: Andrae Conley MD [Primary Care Provider] -
[2016-09-30] MEDS: *HR* Heparin 5,000 UNIT/ML VIAL SQ SCH ×3 (05:16→21:34)
[2016-09-30] MEDS: levETIRAcetam 250 MG TABLET PO SCH ×2 (05:16→17:12)
[2016-09-30] MEDS: Cyanocobalamin (B-12) 1,000 MCG TABLET PO SCH (08:57)
[2016-09-30] MEDS: Thiamine (B-1) 100 MG TABLET PO SCH (08:58)
--- NOTE | 2016-09-30 13:15 | Internal Med Progress Note ---
Date of Encounter: 09/30/16 Time of Encounter: 13:12 - Assessment and plan (1) Intracerebral bleed Current Visit: Yes Status: Acute Assessment and plan: Significant disruption of normal pathways. His speech is really Disse phonic his thought processes are interrupted. He refuses intermittently coaching and teaching. He urinates on the floor sometimes and is incontinent of feces and urine at times. Qualifiers: Intracerebral hemorrhage etiology: nontraumatic Cerebral hemorrhage location: cerebral hemisphere, cortical portion Laterality: left Qualified Code(s): I61.1 - Nontraumatic intracerebral hemorrhage in hemisphere, cortical - Time Spent With Patient less than 15 minutes - Subjective Interval history: The patient is intermittently refusing different modalities of therapy. And social work faculty member talked with his significant other. She feels she cannot deal with him right now and so he will probably be discharged to an ECF - Constitutional Vitals: Temp Pulse Resp BP Pulse Ox 98.0 F 70 16 114/76 97 09/30/16 07:00 09/30/16 07:00 09/30/16 07:00 09/30/16 07:00 09/30/16 07:00 General appearance: Present: cachectic, A&O X 2, no acute distress - Head Head exam: Present: atraumatic, normal inspection, normocephalic - Neck Neck exam general surgery: Present: supple, trachea midline. Absent: lymphadenopathy - Respiratory Respiratory exam: Present: CTAB. Absent: accessory muscle use, rales, rhonchi, wheezes - Cardiovascular Cardiovascular exam: Present: RRR, +S1, +S2. Absent: diastolic murmur, gallop, rubs, systolic murmur Internal Medicine: Result - Labs CBC & Chem 7: 09/29/16 04:50 09/29/16 04:50 Labs: Lab looks stable - ABG Interpretation ABG results: PT/INR, D-dimer PT 11.0 Seconds (9.4-12.1) 09/29/16 04:50 Consult Discharge Plan - Plan Referrals: Andrae Conley MD [Primary Care Provider] -
[2016-10-01] MEDS: *HR* Heparin 5,000 UNIT/ML VIAL SQ SCH (06:15)
[2016-10-01] MEDS: levETIRAcetam 250 MG TABLET PO SCH ×2 (06:15→18:37)
[2016-10-01] MEDS: Cyanocobalamin (B-12) 1,000 MCG TABLET PO SCH (09:49)
[2016-10-01] MEDS: Thiamine (B-1) 100 MG TABLET PO SCH (09:49)
--- NOTE | 2016-10-01 11:29 | Internal Med Progress Note ---
Date of Encounter: 10/01/16 Time of Encounter: 11:27 - Assessment and plan (1) Intracerebral bleed Current Visit: Yes Status: Acute Qualifiers: Intracerebral hemorrhage etiology: nontraumatic Cerebral hemorrhage location: cerebral hemisphere, cortical portion Laterality: left Qualified Code(s): I61.1 - Nontraumatic intracerebral hemorrhage in hemisphere, cortical - Time Spent With Patient less than 15 minutes - Subjective Interval history: Patient is participating today's in therapy. He is using a right leg brace to help straighten the leg and will discuss his discharge plan at the [facility] conference today - Constitutional Vitals: Temp Pulse Resp BP Pulse Ox 98.3 F 76 20 116/79 97 10/01/16 07:00 10/01/16 07:00 10/01/16 07:00 10/01/16 07:00 10/01/16 07:00 General appearance: Present: cachectic, A&O X 2, no acute distress - Head Head exam: Present: atraumatic, normal inspection, normocephalic - Neck Neck exam general surgery: Present: supple, trachea midline. Absent: lymphadenopathy - Respiratory Respiratory exam: Present: CTAB. Absent: accessory muscle use, rales, rhonchi, wheezes - Cardiovascular Cardiovascular exam: Present: RRR, +S1, +S2. Absent: diastolic murmur, gallop, rubs, systolic murmur Internal Medicine: Result - Labs CBC & Chem 7: 09/29/16 04:50 09/29/16 04:50 Labs: Lab is okay - ABG Interpretation ABG results: PT/INR, D-dimer PT 11.0 Seconds (9.4-12.1) 09/29/16 04:50 Consult Discharge Plan - Plan Referrals: Andrae Conley MD [Primary Care Provider] -
[2016-10-02] MEDS: levETIRAcetam 250 MG TABLET PO SCH ×2 (03:36→18:01)
[2016-10-02] MEDS: Thiamine (B-1) 100 MG TABLET PO SCH (10:19)
[2016-10-02] MEDS: Cyanocobalamin (B-12) 1,000 MCG TABLET PO SCH (10:19)
--- NOTE | 2016-10-02 10:52 | Internal Med Progress Note ---
Date of Encounter: 10/02/16 Time of Encounter: 10:50 - Assessment and plan (1) Intracerebral bleed Current Visit: Yes Status: Acute Assessment and plan: Reason for rehabilitation. Please see PT OT TR and speech notes. Patient still has significant dysphagia. But appears to be handling his meals rather well. Qualifiers: Intracerebral hemorrhage etiology: nontraumatic Cerebral hemorrhage location: cerebral hemisphere, cortical portion Laterality: left Qualified Code(s): I61.1 - Nontraumatic intracerebral hemorrhage in hemisphere, cortical - Subjective Interval history: Patient is participating today's in therapy. He is using a right leg brace to help straighten the leg and will discuss his discharge plan at the [facility] conference today. patient continues to work with therapists. No complaints today. - Constitutional Vitals: Temp Pulse Resp BP Pulse Ox 97.9 F 72 15 119/83 97 10/02/16 07:00 10/02/16 07:00 10/02/16 07:00 10/02/16 07:00 10/02/16 07:00 General appearance: Present: cachectic, A&O X 2, no acute distress - Head Head exam: Present: atraumatic, normal inspection, normocephalic - Neck Neck exam general surgery: Present: supple, trachea midline. Absent: lymphadenopathy - Cardiovascular Cardiovascular exam: Present: RRR, +S1, +S2. Absent: diastolic murmur, gallop, rubs, systolic murmur Internal Medicine: Result - Labs CBC & Chem 7: 09/29/16 04:50 09/29/16 04:50 Labs: Lab is stable - ABG Interpretation ABG results: PT/INR, D-dimer PT 11.0 Seconds (9.4-12.1) 09/29/16 04:50 Consult Discharge Plan - Plan Referrals: Andrae Conley MD [Primary Care Provider] -
[2016-10-03] MEDS: levETIRAcetam 250 MG TABLET PO SCH ×2 (06:26→18:12)
[2016-10-03] MEDS: Thiamine (B-1) 100 MG TABLET PO SCH (09:41)
[2016-10-03] MEDS: Cyanocobalamin (B-12) 1,000 MCG TABLET PO SCH (09:41)
--- NOTE | 2016-10-03 13:59 | Internal Med Progress Note ---
Date of Encounter: 10/03/16 Time of Encounter: 13:58 - Assessment and plan (1) Intracerebral bleed Current Visit: Yes Status: Acute Assessment and plan: Shakiness progressing slowly still has some left hemiparesis. This is what is slowing his download he is still dysphasic. Qualifiers: Intracerebral hemorrhage etiology: nontraumatic Cerebral hemorrhage location: cerebral hemisphere, cortical portion Laterality: left Qualified Code(s): I61.1 - Nontraumatic intracerebral hemorrhage in hemisphere, cortical - Time Spent With Patient less than 15 minutes - Subjective Interval history: Patient's cooperative male with PT. He did 50 feet today with PT assisting him by advancing his affected side - Constitutional Vitals: Temp Pulse Resp BP Pulse Ox 97.8 F 78 15 126/81 94 10/03/16 07:00 10/03/16 07:00 10/03/16 07:00 10/03/16 07:00 10/03/16 07:00 General appearance: Present: cachectic, A&O X 2, no acute distress - Head Head exam: Present: atraumatic, normal inspection, normocephalic - Neck Neck exam general surgery: Present: supple, trachea midline. Absent: lymphadenopathy - Respiratory Respiratory exam: Present: CTAB. Absent: accessory muscle use, rales, rhonchi, wheezes - Cardiovascular Cardiovascular exam: Present: RRR, +S1, +S2. Absent: diastolic murmur, gallop, rubs, systolic murmur Internal Medicine: Result - Labs CBC & Chem 7: 09/29/16 04:50 09/29/16 04:50 Labs: Lab is stable - ABG Interpretation ABG results: PT/INR, D-dimer PT 11.0 Seconds (9.4-12.1) 09/29/16 04:50 Consult Discharge Plan - Plan Referrals: Andrae Conley MD [Primary Care Provider] -
[2016-10-04] MEDS: Cyanocobalamin (B-12) 1,000 MCG TABLET PO SCH (09:42)
[2016-10-04] MEDS: Thiamine (B-1) 100 MG TABLET PO SCH (09:42)
[2016-10-04] MEDS: levETIRAcetam 250 MG TABLET PO SCH ×2 (09:42→18:00)
--- NOTE | 2016-10-04 12:00 | Internal Med Progress Note ---
Date of Encounter: 10/04/16 Time of Encounter: 11:57 - Assessment and plan (1) Intracerebral bleed Current Visit: Yes Status: Acute Assessment and plan: still has some left hemiparesis. PT OT working on improving ADL. Still having behavioral issues. Refused meds last night but took it this morning. Qualifiers: Intracerebral hemorrhage etiology: nontraumatic Cerebral hemorrhage location: cerebral hemisphere, cortical portion Laterality: left Qualified Code(s): I61.1 - Nontraumatic intracerebral hemorrhage in hemisphere, cortical (2) Right hemiparesis Current Visit: Yes Status: Acute (3) Aphasia Current Visit: Yes Status: Acute - Time Spent With Patient less than 15 minutes - Subjective Interval history: No new complaint. Complains of generalized weakness. No shortness of breath. No chest pain. Feeding self. - Constitutional Vitals: Temp Pulse Resp BP Pulse Ox 98 F 78 20 105/62 95 10/04/16 07:04 10/04/16 07:04 10/04/16 07:04 10/04/16 07:04 10/04/16 07:04 General appearance: Present: cachectic, A&O X 2, no acute distress - Respiratory Respiratory exam: Present: CTAB. Absent: accessory muscle use, rales, rhonchi, wheezes - Cardiovascular Cardiovascular exam: Present: RRR, +S2. Absent: rubs, systolic murmur - GI/Abdominal GI/Abdominal exam: Present: normal bowel sounds, soft, no peritoneal signs. Absent: distended, tenderness - Neurological Exam Neurological exam: Present: alert (Same right-sided being flaccid. Still aphasic.) Internal Medicine: Result - Labs CBC & Chem 7: 09/29/16 04:50 09/29/16 04:50 - ABG Interpretation ABG results: PT/INR, D-dimer PT 11.0 Seconds (9.4-12.1) 09/29/16 04:50 Consult Discharge Plan - Plan Referrals: Andrae Conley MD [Primary Care Provider] -
[2016-10-05] MEDS: levETIRAcetam 250 MG TABLET PO SCH ×2 (04:21→16:52)
[2016-10-05] MEDS: Cyanocobalamin (B-12) 1,000 MCG TABLET PO SCH (07:57)
[2016-10-05] MEDS: Thiamine (B-1) 100 MG TABLET PO SCH (07:58)
--- NOTE | 2016-10-05 10:55 | Internal Med Progress Note ---
Date of Encounter: 10/05/16 Time of Encounter: 10:53 - Assessment and plan (1) Intracerebral bleed Current Visit: Yes Status: Acute Assessment and plan: still has some left hemiparesis. PT OT working on improving ADL. Still having behavioral issues. Urinates on the floor. Yesterday, demanded to leave AMA. Refused meds last night but took it this morning. Qualifiers: Intracerebral hemorrhage etiology: nontraumatic Cerebral hemorrhage location: cerebral hemisphere, cortical portion Laterality: left Qualified Code(s): I61.1 - Nontraumatic intracerebral hemorrhage in hemisphere, cortical (2) Right hemiparesis Current Visit: Yes Status: Acute (3) Aphasia Current Visit: Yes Status: Acute - Subjective Interval history: No new complaint. Complains of generalized weakness. No shortness of breath. No chest pain. Feeding self. Still having behavioral issues. Patient would urinate on the floor. - Constitutional Vitals: Temp Pulse Resp BP Pulse Ox 98.9 F 81 18 110/71 94 10/05/16 06:59 10/05/16 06:59 10/05/16 06:59 10/05/16 06:59 10/05/16 06:59 General appearance: Present: cachectic, A&O X 2, no acute distress - Respiratory Respiratory exam: Present: CTAB. Absent: accessory muscle use, rales, rhonchi, wheezes - Cardiovascular Cardiovascular exam: Present: RRR, +S1, +S2. Absent: diastolic murmur, gallop, rubs, systolic murmur - Neurological Exam Additional comments: Right side still flaccid. Still has some dysarthria. Internal Medicine: Result - Labs CBC & Chem 7: 09/29/16 04:50 09/29/16 04:50 - ABG Interpretation ABG results: PT/INR, D-dimer PT 11.0 Seconds (9.4-12.1) 09/29/16 04:50 Consult Discharge Plan - Plan Referrals: Andrae Conley MD [Primary Care Provider] -
[2016-10-06] MEDS: levETIRAcetam 250 MG TABLET PO SCH ×3 (04:31→21:02)
[2016-10-06 05:48] LABS: Basophils # 0.1 K/mcL (0.0-0.2); Basophils % 0.9 %; Eosinophils # 0.6 K/mcL (0.0-0.6); Eosinophils % 5.2 %; Hematocrit 37.3 % (37.5-50.1); Hemoglobin 12.5 g/dL (12.9-16.9); Lymphocytes # 3.1 K/mcL (0.6-4.6); Lymphocytes % 26.9 %; Mean Corpuscular HGB Conc 33.5 g/dL (31.6-35.5); Mean Corpuscular Hemoglobin 31.3 pg (28.0-33.3); Mean Corpuscular Volume 93.3 fL (83.0-100.0); Mean Platelet Volume 9.3 fL (9.4-12.4); Monocytes % 11.7 %; Neutrophils # 6.2 K/mcL (1.6-8.9); Platelet Count 313 K/mcL (140-400); Red Cell Distribution Width 15.2 % (11.5-14.5); Segmented Neutrophils % 54.3 %
[2016-10-06 05:53] LABS: Activated Partial Thrombo Time 31.5 Seconds (26.0-36.0); Monocytes # 1.4 K/mcL (0.0-1.3)
[2016-10-06 05:54] LABS: Prothrombin Time 10.5 Seconds (9.4-12.1)
[2016-10-06 06:07] LABS: BUN/Creatinine Ratio 25 (6-26); Blood Urea Nitrogen 19 mg/dL (8-26); Calcium 9.7 mg/dL (8.6-10.8); Carbon Dioxide 27 mEq/L (19-29); Chloride 100 mEq/L (98-109); Glucose 86 mg/dL (70-99); Osmolality,Calculated 286 (280-300); Potassium 4.1 mEq/L (3.5-4.5); Sodium 137 mEq/L (136-145); eGFR For African Americans > 60 (> 60); eGFR For Non-African Americans > 60 (> 60)
[2016-10-06] MEDS: Cyanocobalamin (B-12) 1,000 MCG TABLET PO SCH (09:01)
[2016-10-06] MEDS: Thiamine (B-1) 100 MG TABLET PO SCH (09:02)
--- NOTE | 2016-10-06 13:58 | Internal Med Progress Note ---
Date of Encounter: 10/06/16 Time of Encounter: 13:56 - Assessment and plan (1) Intracerebral bleed Current Visit: Yes Status: Acute Assessment and plan: Intercerebral bleed that is hopefully resolving Qualifiers: Intracerebral hemorrhage etiology: nontraumatic Cerebral hemorrhage location: cerebral hemisphere, cortical portion Laterality: left Qualified Code(s): I61.1 - Nontraumatic intracerebral hemorrhage in hemisphere, cortical - Time Spent With Patient less than 15 minutes - Subjective Interval history: Patient's cooperative male with PT. He did 50 feet today with PT assisting him by advancing his affected side - Constitutional Vitals: Temp Pulse Resp BP Pulse Ox 99.1 F 97 18 114/76 95 10/06/16 07:05 10/06/16 07:05 10/06/16 07:05 10/06/16 07:05 10/06/16 07:05 General appearance: Present: cachectic, A&O X 2, no acute distress - Head Head exam: Present: atraumatic, normal inspection, normocephalic - Neck Neck exam general surgery: Present: supple, trachea midline. Absent: lymphadenopathy - Respiratory Respiratory exam: Present: CTAB. Absent: accessory muscle use, rales, rhonchi, wheezes - Cardiovascular Cardiovascular exam: Present: RRR, +S1, +S2. Absent: diastolic murmur, gallop, rubs, systolic murmur Internal Medicine: Result - Labs CBC & Chem 7: 10/06/16 04:35 10/06/16 04:35 Labs: Short CBC 10/06/16 Range/Units 04:35 WBC 11.5 H D (4.3-11.1) K/mcL Hgb 12.5 L (12.9-16.9) g/dL Hct 37.3 L (37.5-50.1) % Plt Count 313 (140-400) K/mcL Neutrophils # 6.2 (1.6-8.9) K/mcL BMP 10/06/16 04:35 Sodium 137 Potassium 4.1 Chloride 100 Carbon Dioxide 27 BUN 19 Creatinine 0.77 Glucose 86 Calcium 9.7 Lab appears stable - ABG Interpretation ABG results: PT/INR, D-dimer PT 10.5 Seconds (9.4-12.1) 10/06/16 04:35 Consult Discharge Plan - Plan Referrals: Andrae Conley MD [Primary Care Provider] -
[2016-10-07] MEDS: Cyanocobalamin (B-12) 1,000 MCG TABLET PO SCH (09:42)
[2016-10-07] MEDS: Thiamine (B-1) 100 MG TABLET PO SCH (09:42)
[2016-10-07] MEDS: levETIRAcetam 250 MG TABLET PO SCH ×2 (09:42→17:50)
--- NOTE | 2016-10-07 14:12 | Internal Med Progress Note ---
Date of Encounter: 10/07/16 Time of Encounter: 14:11 - Assessment and plan (1) Intracerebral bleed Current Visit: Yes Status: Acute Assessment and plan: Patient had a drug cerebral bleed and I think there is some global aphasia Qualifiers: Intracerebral hemorrhage etiology: nontraumatic Cerebral hemorrhage location: cerebral hemisphere, cortical portion Laterality: left Qualified Code(s): I61.1 - Nontraumatic intracerebral hemorrhage in hemisphere, cortical - Time Spent With Patient less than 15 minutes - Subjective Interval history: Patient sameer refusing all meds. He is stable. We are trying to get him ready for ECF transfer. - Constitutional Vitals: Temp Pulse Resp BP Pulse Ox 98.1 F 100 18 148/96 95 10/07/16 07:00 10/07/16 07:00 10/07/16 07:00 10/07/16 07:00 10/07/16 07:00 General appearance: Present: cachectic, A&O X 2, no acute distress - Head Head exam: Present: atraumatic, normal inspection, normocephalic - Neck Neck exam general surgery: Present: supple, trachea midline. Absent: lymphadenopathy - Respiratory Respiratory exam: Present: CTAB. Absent: accessory muscle use, rales, rhonchi, wheezes - Cardiovascular Cardiovascular exam: Present: RRR, +S1, +S2. Absent: diastolic murmur, gallop, rubs, systolic murmur - GI/Abdominal GI/Abdominal exam: Present: normal bowel sounds, soft, no peritoneal signs. Absent: distended, tenderness Internal Medicine: Result - Labs CBC & Chem 7: 10/06/16 04:35 10/06/16 04:35 Labs: Labs look stable - ABG Interpretation ABG results: PT/INR, D-dimer PT 10.5 Seconds (9.4-12.1) 10/06/16 04:35 Consult Discharge Plan - Plan Referrals: Andrae Conley MD [Primary Care Provider] -
[2016-10-08] MEDS: Cyanocobalamin (B-12) 1,000 MCG TABLET PO SCH (08:33)
[2016-10-08] MEDS: Thiamine (B-1) 100 MG TABLET PO SCH (08:34)
[2016-10-08] MEDS: levETIRAcetam 250 MG TABLET PO SCH ×2 (08:34→19:40)
--- NOTE | 2016-10-08 12:57 | Physical Med Progress Note ---
Date of Encounter: 10/01/16 Time of Encounter: 12:50 Assessment and Plan (1) Intracerebral bleed Current Visit: Yes Status: Acute Qualifiers: Intracerebral hemorrhage etiology: nontraumatic Cerebral hemorrhage location: cerebral hemisphere, cortical portion Laterality: left Qualified Code(s): I61.1 - Nontraumatic intracerebral hemorrhage in hemisphere, cortical (2) Right hemiparesis Current Visit: Yes Status: Acute (3) Dysarthria Current Visit: Yes Status: Acute (4) Dysphagia Current Visit: Yes Status: Acute Qualifiers: Dysphagia type: unspecified Qualified Code(s): R13.10 - Dysphagia, unspecified (5) Aphasia Current Visit: Yes Status: Acute Physical Medicine-PN: Subj Interval history: PMR PCC note Patients significant other came in for education. Patient has had no return in his plegic side. Patient is refusing medications. He has not been participating with some therapies. He continues to suffer from severe dysarthria and aphasia. Patient has been sporadic in his participation with speech therapy. Plan for discharge to home with home health after discharge and 24 hour supervision. - Constitutional Vitals: Vital Signs Temp Pulse Resp BP Pulse Ox 10/08/16 07:00 97.8 F 96 17 119/78 94 10/07/16 19:28 98.1 F 100 14 126/79 94 Intake and Output 10/07/16 10/08/16 10/08/16 23:59 07:59 15:59 Intake Total 440 / 440 360 / 360 Balance 440 / 440 360 / 360 Intake: Oral 440 / 440 360 / 360 Other: Meal Dinner Percent of Meal Consumed 90% 100% # Voids 3 # Urine Diapers 1 1 Physical Medicine-PN: Obj Data - Labs CBC & Chem 7: 10/06/16 04:35 10/06/16 04:35 - ABG Interpretation ABG results: PT/INR, D-dimer PT 10.5 Seconds (9.4-12.1) 10/06/16 04:35 Consult Discharge Plan - Plan Referrals: Andrae Conley MD [Primary Care Provider] -
[2016-10-09] MEDS: levETIRAcetam 250 MG TABLET PO SCH ×2 (06:17→17:23)
[2016-10-09] MEDS: Thiamine (B-1) 100 MG TABLET PO SCH (08:26)
[2016-10-09] MEDS: Cyanocobalamin (B-12) 1,000 MCG TABLET PO SCH (08:26)
--- NOTE | 2016-10-09 13:44 | Internal Med Progress Note ---
Date of Encounter: 10/09/16 Time of Encounter: 13:41 - Assessment and plan (1) Intracerebral bleed Current Visit: Yes Status: Acute Assessment and plan: Well patient is making some progress with her modest Qualifiers: Intracerebral hemorrhage etiology: nontraumatic Cerebral hemorrhage location: cerebral hemisphere, cortical portion Laterality: left Qualified Code(s): I61.1 - Nontraumatic intracerebral hemorrhage in hemisphere, cortical - Time Spent With Patient less than 15 minutes - Subjective Interval history: Patient is refusing all meds. He is stable. We are trying to get him ready for home transfer. - Constitutional Vitals: Temp Pulse Resp BP Pulse Ox 97.9 F 101 16 118/80 95 10/09/16 07:00 10/09/16 07:00 10/09/16 07:00 10/09/16 07:00 10/09/16 07:00 General appearance: Present: cachectic, A&O X 2, no acute distress - Head Head exam: Present: atraumatic, normal inspection, normocephalic - Neck Neck exam general surgery: Present: supple, trachea midline. Absent: lymphadenopathy - Respiratory Respiratory exam: Present: CTAB. Absent: accessory muscle use, rales, rhonchi, wheezes - Cardiovascular Cardiovascular exam: Present: RRR, +S1, +S2. Absent: diastolic murmur, gallop, rubs, systolic murmur - GI/Abdominal GI/Abdominal exam: Present: normal bowel sounds, soft, no peritoneal signs. Absent: distended, tenderness Internal Medicine: Result - Labs CBC & Chem 7: 10/06/16 04:35 10/06/16 04:35 Labs: Patient is cooperating at times with the therapy department but sometimes refusing that lab appears stable. - ABG Interpretation ABG results: PT/INR, D-dimer PT 10.5 Seconds (9.4-12.1) 10/06/16 04:35 Consult Discharge Plan - Plan Referrals: Andrae Conley MD [Primary Care Provider] -
[2016-10-10] MEDS: levETIRAcetam 250 MG TABLET PO SCH ×2 (04:58→17:17)
[2016-10-10] MEDS: Thiamine (B-1) 100 MG TABLET PO SCH (08:04)
[2016-10-10] MEDS: Cyanocobalamin (B-12) 1,000 MCG TABLET PO SCH (08:04)
--- NOTE | 2016-10-10 13:40 | Internal Med Progress Note ---
Date of Encounter: 10/10/16 Time of Encounter: 13:39 - Assessment and plan (1) Intracerebral bleed Current Visit: Yes Status: Acute Assessment and plan: Improved. Still problems with dysarthria and movement and he still has the hemiplegia Qualifiers: Intracerebral hemorrhage etiology: nontraumatic Cerebral hemorrhage location: cerebral hemisphere, cortical portion Laterality: left Qualified Code(s): I61.1 - Nontraumatic intracerebral hemorrhage in hemisphere, cortical - Subjective Interval history: Patient is refusing all meds. He is stable. We are trying to get him ready for home transfer. I remove the PEG tube today without difficulty. It was actually L Caputo which had a balloon that was already broken inside. Saw aspirated what water I could noted to literally follow out and the dressing was placed temporarily. - Constitutional Vitals: Temp Pulse Resp BP Pulse Ox 98.6 F 97 18 102/69 93 10/10/16 07:29 10/10/16 07:29 10/10/16 07:29 10/10/16 07:29 10/10/16 07:29 General appearance: Present: cachectic, A&O X 2, no acute distress - Head Head exam: Present: atraumatic, normal inspection, normocephalic - Neck Neck exam general surgery: Present: supple, trachea midline. Absent: lymphadenopathy - Respiratory Respiratory exam: Present: CTAB. Absent: accessory muscle use, rales, rhonchi, wheezes - Cardiovascular Cardiovascular exam: Present: RRR, +S1, +S2. Absent: diastolic murmur, gallop, rubs, systolic murmur Internal Medicine: Result - Labs CBC & Chem 7: 10/06/16 04:35 10/06/16 04:35 Labs: Labs stable - ABG Interpretation ABG results: PT/INR, D-dimer PT 10.5 Seconds (9.4-12.1) 10/06/16 04:35 Consult Discharge Plan - Plan Referrals: Andrae Conley MD [Primary Care Provider] -
[2016-10-11] MEDS: levETIRAcetam 250 MG TABLET PO SCH ×2 (05:44→17:23)
[2016-10-11] MEDS: Thiamine (B-1) 100 MG TABLET PO SCH (08:27)
[2016-10-11] MEDS: Cyanocobalamin (B-12) 1,000 MCG TABLET PO SCH (08:27)
--- NOTE | 2016-10-11 14:34 | Internal Med Progress Note ---
Date of Encounter: 10/11/16 Time of Encounter: 14:33 - Assessment and plan (1) Intracerebral bleed Current Visit: Yes Status: Acute Assessment and plan: IPatient has had no return in his plegic side. Patient is refusing medications. He has not been participating with some therapies. He continues to suffer from severe dysarthria and aphasia. Qualifiers: Intracerebral hemorrhage etiology: nontraumatic Cerebral hemorrhage location: cerebral hemisphere, cortical portion Laterality: left Qualified Code(s): I61.1 - Nontraumatic intracerebral hemorrhage in hemisphere, cortical (2) Right hemiparesis Current Visit: Yes Status: Acute (3) Aphasia Current Visit: Yes Status: Acute - Subjective Interval history: Patient became more drowsy after a visitor came in. There is suspicioun for visitor bringing in inappropriate medication. We will check urine drug screen No new complaint. Complains of generalized weakness. No shortness of breath. No chest pain. Feeding self. Still having behavioral issues. Patient would urinate on the floor. - Constitutional Vitals: Temp Pulse Resp BP Pulse Ox 98.1 F 85 16 129/75 93 10/11/16 07:00 10/11/16 07:00 10/11/16 07:00 10/11/16 07:00 10/11/16 07:00 General appearance: Present: cachectic, A&O X 2, no acute distress - Cardiovascular Cardiovascular exam: Present: RRR, +S1, +S2. Absent: diastolic murmur, gallop, rubs, systolic murmur - GI/Abdominal GI/Abdominal exam: Present: normal bowel sounds, soft, no peritoneal signs. Absent: distended, tenderness - Extremities Exam Extremities exam: Present: warm, radial pulses palpable and symetrical. Absent : calf tenderness, cyanotic, pedal edema Internal Medicine: Result - Labs CBC & Chem 7: 10/06/16 04:35 10/06/16 04:35 - ABG Interpretation ABG results: PT/INR, D-dimer PT 10.5 Seconds (9.4-12.1) 10/06/16 04:35 Consult Discharge Plan - Plan Referrals: Andrae Conley MD [Primary Care Provider] -
[2016-10-11 16:00] LABS: Amphetamine Screen,Urine Negative ng/mL (Cutoff=1000); Barbiturate Screen,Urine Negative ng/mL (Cutoff=200); Benzodiazepines Screen,Urine Negative ng/mL (Cutoff=200); Cannabinoid Screen,Urine Negative ng/mL (Cutoff = 50); Cocaine Screen,Urine Negative ng/mL (Cutoff= 300); Opiate Screen,Urine Negative ng/mL (Cutoff=300); Phencyclidine Screen,Urine Negative ng/mL (Cutoff=25)
[2016-10-11 19:42] LABS: Bilirubin,Urine Negative (Negative); Blood,Urine Small (Negative); Clarity,Urine Slightly Cloudy (Clear); Color,Urine Yellow (Yellow); Glucose,Urine (UA) Normal (Normal); Ketones,Urine Negative (Negative); Leukocyte Esterase,Urine Large (Negative); Nitrite,Urine Positive (Negative); Protein,Urine Negative (Neg-Trace); Specific Gravity,Urine 1.015 (1.010-1.025); Urobilinogen,Urine Normal (Normal)
[2016-10-11 19:56] LABS: Squamous Epithelial Cell,Urine Few per lpf (None-Few)
[2016-10-11 19:57] LABS: Bacteria,Urine Moderate per hpf (None-Few); WBC,Urine TNTC per hpf (0-3)
--- NOTE | 2016-10-12 10:19 | Internal Med Progress Note ---
Date of Encounter: 10/12/16 Time of Encounter: 10:18 - Assessment and plan (1) Intracerebral bleed Current Visit: Yes Status: Acute Assessment and plan: IPatient has had no return in his plegic side. Patient is refusing medications. He has not been participating with some therapies. He continues to suffer from severe dysarthria and aphasia. Qualifiers: Intracerebral hemorrhage etiology: nontraumatic Cerebral hemorrhage location: cerebral hemisphere, cortical portion Laterality: left Qualified Code(s): I61.1 - Nontraumatic intracerebral hemorrhage in hemisphere, cortical (2) Right hemiparesis Current Visit: Yes Status: Acute (3) Aphasia Current Visit: Yes Status: Acute (4) UTI (urinary tract infection) Current Visit: Yes Status: Acute Assessment and plan: Cipro initiated Qualifiers: Urinary tract infection type: site unspecified Hematuria presence: without hematuria Qualified Code(s): N39.0 - Urinary tract infection, site not specified - Subjective Interval history: Urinalysis showed UTI Patient became more drowsy after a visitor came in. There is suspicioun for visitor bringing in inappropriate medication. Drug screen was negative No new complaint. Complains of generalized weakness. No shortness of breath. No chest pain. Feeding self. Still having behavioral issues. Patient would urinate on the floor. - Constitutional Vitals: Temp Pulse Resp BP Pulse Ox 98.1 F 124 22 130/76 94 10/12/16 08:58 10/12/16 08:58 10/12/16 08:58 10/12/16 08:58 10/12/16 08:58 General appearance: Present: cachectic, A&O X 2, no acute distress - Respiratory Respiratory exam: Present: CTAB. Absent: accessory muscle use, rales, rhonchi, wheezes - Cardiovascular Cardiovascular exam: Present: RRR, +S1, +S2. Absent: diastolic murmur, gallop, rubs, systolic murmur Internal Medicine: Result - Labs CBC & Chem 7: 10/06/16 04:35 10/06/16 04:35 Labs: Urine 10/11/16 Range/Units 14:20 Urine Color Yellow (Yellow) Urine Clarity Slightly Cloudy A (Clear) Urine pH 6.0 (5.0-8.0) pH Units Ur Specific [place] 1.015 (1.010-1.025) Urine Protein Negative (Neg-Trace) mg/dL Urine Glucose (UA) Normal (Normal) mg/dL - ABG Interpretation ABG results: PT/INR, D-dimer PT 10.5 Seconds (9.4-12.1) 10/06/16 04:35 Consult Discharge Plan - Plan Referrals: Andrae Conley MD [Primary Care Provider] -
[2016-10-12] MEDS: levETIRAcetam 250 MG TABLET PO SCH ×2 (10:20→17:16)
[2016-10-12] MEDS: Thiamine (B-1) 100 MG TABLET PO SCH (10:20)
[2016-10-12] MEDS: Cyanocobalamin (B-12) 1,000 MCG TABLET PO SCH (10:20)
[2016-10-13] MEDS: levETIRAcetam 250 MG TABLET PO SCH ×2 (05:15→17:42)
[2016-10-13 06:11] LABS: Prothrombin Time 11.3 Seconds (9.4-12.1)
[2016-10-13 06:12] LABS: Basophils # 0.1 K/mcL (0.0-0.2); Basophils % 1.1 %; Eosinophils # 0.7 K/mcL (0.0-0.6); Hematocrit 38.2 % (37.5-50.1); Hemoglobin 12.6 g/dL (12.9-16.9); Lymphocytes # 3.3 K/mcL (0.6-4.6); Mean Corpuscular Hemoglobin 30.7 pg (28.0-33.3); Mean Corpuscular Volume 93.2 fL (83.0-100.0); Mean Platelet Volume 9.1 fL (9.4-12.4); Monocytes # 1.1 K/mcL (0.0-1.3); Monocytes % 9.9 %; Neutrophils # 5.7 K/mcL (1.6-8.9); Platelet Count 339 K/mcL (140-400); Red Cell Distribution Width 14.6 % (11.5-14.5)
[2016-10-13 06:13] LABS: Activated Partial Thrombo Time 32.3 Seconds (26.0-36.0)
[2016-10-13 06:18] LABS: BUN/Creatinine Ratio 22 (6-26); Blood Urea Nitrogen 17 mg/dL (8-26); Calcium 9.9 mg/dL (8.6-10.8); Carbon Dioxide 29 mEq/L (19-29); Chloride 100 mEq/L (98-109); Glucose 93 mg/dL (70-99); Osmolality,Calculated 289 (280-300); Potassium 4.3 mEq/L (3.5-4.5); Sodium 139 mEq/L (136-145); eGFR For African Americans > 60 (> 60); eGFR For Non-African Americans > 60 (> 60)
[2016-10-13] MEDS: Thiamine (B-1) 100 MG TABLET PO SCH (08:57)
[2016-10-13] MEDS: Cyanocobalamin (B-12) 1,000 MCG TABLET PO SCH (08:57)
--- NOTE | 2016-10-13 14:08 | Internal Med Progress Note ---
Date of Encounter: 10/13/16 Time of Encounter: 14:06 - Assessment and plan (1) Intracerebral bleed Current Visit: Yes Status: Acute Assessment and plan: Noted Qualifiers: Intracerebral hemorrhage etiology: nontraumatic Cerebral hemorrhage location: cerebral hemisphere, cortical portion Laterality: left Qualified Code(s): I61.1 - Nontraumatic intracerebral hemorrhage in hemisphere, cortical - Time Spent With Patient less than 15 minutes - Subjective Interval history: Patient is still some cooperation for his therapy. Going home tomorrow - Constitutional Vitals: Temp Pulse Resp BP Pulse Ox 97.9 F 96 16 119/77 96 10/13/16 06:44 10/13/16 06:44 10/13/16 06:44 10/13/16 06:44 10/13/16 06:44 General appearance: Present: cachectic, A&O X 2, no acute distress - Head Head exam: Present: atraumatic, normal inspection, normocephalic - Neck Neck exam general surgery: Present: supple, trachea midline. Absent: lymphadenopathy - Respiratory Respiratory exam: Present: CTAB. Absent: accessory muscle use, rales, rhonchi, wheezes - Cardiovascular Cardiovascular exam: Present: RRR, +S1, +S2. Absent: diastolic murmur, gallop, rubs, systolic murmur Internal Medicine: Result - Labs CBC & Chem 7: 10/13/16 05:10 10/13/16 05:10 Labs: Short CBC 10/13/16 Range/Units 05:10 WBC 11.4 H (4.3-11.1) K/mcL Hgb 12.6 L (12.9-16.9) g/dL Hct 38.2 (37.5-50.1) % Plt Count 339 (140-400) K/mcL Neutrophils # 5.7 (1.6-8.9) K/mcL BMP 10/13/16 05:10 Sodium 139 Potassium 4.3 Chloride 100 Carbon Dioxide 29 BUN 17 Creatinine 0.79 Glucose 93 Calcium 9.9 Lab is stable - ABG Interpretation ABG results: PT/INR, D-dimer PT 11.3 Seconds (9.4-12.1) 10/13/16 05:10 Consult Discharge Plan - Plan Referrals: Andrae Conley MD [Primary Care Provider] -
--- NOTE | 2016-10-13 15:15 | Discharge Summary ---
Date of Encounter: 10/13/16 Time of Encounter: 15:02 - Discharge Diagnosis (1) Intracerebral bleed Priority: Primary Status: Acute Comments: Patient's made just very modest progress. He has hot and cold participation. Qualifiers: Intracerebral hemorrhage etiology: nontraumatic Cerebral hemorrhage location: cerebral hemisphere, cortical portion Laterality: left Qualified Code(s): I61.1 - Nontraumatic intracerebral hemorrhage in hemisphere, cortical - Discharge Medications Home Medications: Acetaminophen [Tylenol] 1,000 mg PO Q6HR PRN #100 tablet 10/13/16 [Rx] Cyclobenzaprine [Flexeril] 10 mg PO TID #90 tablet 10/13/16 [Rx] LevETIRAcetam [Keppra] 500 mg PO Q12HR #60 tablet 10/13/16 [Rx] Quetiapine Fumarate [Seroquel] 50 mg PO BID #60 tablet 10/13/16 [Rx] Allergies/Adverse Reactions: Allergies No Known Allergies Allergy (Verified 05/21/16 08:16) Date of admission: 09/16/16 18:30 Primary care physician: Savage Gonsales Consults: 09/16/16 19:15 Consult to Nutrition [CONS] Routine Comment: Consulting Provider: NUTRITION Reason for Dietary Consult: TF Start and Manage Consult to Occupational Therapy [CONS] Routine Comment: s/p ich Consult to Physical Therapy [CONS] Routine Comment: s/p ich Consult to Recreational Therapy [CONS] Routine Comment: Consult to Electronics Tech [CONS] Routine Reason for SW Consult: d/c planning 09/16/16 19:20 Consult to Speech Therapy [CONS] Routine Comment: Evaluate, develop and implement POC Reason for Consult: s/p ich, global aphagia Call Completed: Yes 09/17/16 09:23 Consult to Psychology [CONS] Routine Consulting Provider: Roxann Meza Reason for Consult: cva r/t cocaine use Time Notified: 09:24 Call Completed: Yes 09/23/16 15:45 Consult to Psychology [CONS] Routine Consulting Provider: Roxann Meza Reason for Consult: CVA Time Notified: 16:00 Call Completed: No Discharging clinician: Mark Mayorga Anticipated date of discharge: 10/13/16 - Patient Status Disposition: Home Health Service Condition: Fair Functional capacity at discharge: wheelchair bound Overall status at discharge: patient is not back to baseline - Discharge Instructions Follow Up With: Andrae Conley MD [Primary Care Provider] - - Diet and Activity Activity: as per physical therapy Hospital course: Mr. Thurman is a 51 year old male - Time Spent with Patient Total time spent providing and/or coordinating discharge services: Less than 30 minutes - Constitutional Vitals: Temp Pulse Resp BP Pulse Ox 97.9 F 96 16 119/77 96 10/13/16 06:44 10/13/16 06:44 10/13/16 06:44 10/13/16 06:44 10/13/16 06:44 General appearance: Present: cachectic, A&O X 2, no acute distress - Head Head exam: Present: atraumatic, normal inspection, normocephalic - Respiratory Respiratory exam: Present: CTAB. Absent: accessory muscle use, rales, rhonchi, wheezes - Cardiovascular Cardiovascular exam: Present: RRR, +S1, +S2. Absent: diastolic murmur, gallop, rubs, systolic murmur - GI/Abdominal GI/Abdominal exam: Present: normal bowel sounds, soft, no peritoneal signs. Absent: distended, tenderness
--- NOTE | 2016-10-13 15:18 | Physician Discharge Referral ---
Home Health/Hosp Referral Info Transfer to: Home Health Provider in Charge Post Discharge: PCP - Diagnosis (1) Intracerebral bleed Priority: Primary Status: Acute - Respiratory Orders Smoking Cessation: Smoking cessation has been advised. For more information, call the [place] Tobacco Quit Line at 2-338-FXNR-NOW. - Diet/Nutrition Diet/Nutrition Orders: Regular - Activity Activity Orders: Chair - Services Needed Following services are medically necessary services: Nursing, Physical Therapy - Transfer Medications Prescriptions: Acetaminophen [Tylenol] 1,000 mg PO Q6HR PRN #100 tablet PRN Reason: Moderate Pain LevETIRAcetam [Keppra] 500 mg PO Q12HR #60 tablet Cyclobenzaprine [Flexeril] 10 mg PO TID #90 tablet Quetiapine Fumarate [Seroquel] 50 mg PO BID #60 tablet Home Medications: Acetaminophen [Tylenol] 1,000 mg PO Q6HR PRN #100 tablet 10/13/16 [Rx] Cyclobenzaprine [Flexeril] 10 mg PO TID #90 tablet 10/13/16 [Rx] LevETIRAcetam [Keppra] 500 mg PO Q12HR #60 tablet 10/13/16 [Rx] Quetiapine Fumarate [Seroquel] 50 mg PO BID #60 tablet 10/13/16 [Rx] Allergies/Adverse Reactions: Allergies No Known Allergies Allergy (Verified 05/21/16 08:16) Certification: Further, I certify that my clinical findings support that this patient is homebound (i.e. absences from home require considerable and taxing effort and are for medical reasons or [employer] services or infrequently or short duration when for other reasons) because: Homebound Reason: Patient requires assistance of a person or device to safely leave home Attestation: My signature below is to certify that this patient is under my care and that I, or nurse practitioner, or a physician's special education teaching assistant working with me, has a face-to -face encounter with this patient.
[2016-10-14] MEDS: levETIRAcetam 250 MG TABLET PO SCH (05:30)
[2016-10-14 07:11] VITALS: BP 107/71
[2016-10-14] MEDS: Cyanocobalamin (B-12) 1,000 MCG TABLET PO SCH (07:58)
[2016-10-14] MEDS: Thiamine (B-1) 100 MG TABLET PO SCH (07:58)
== END 2016-10-14 15:00 | disposition home health service (06) | DRG 57 ==
LOC: INPGRE 18:30
PROVIDERS: ADMIT Internal Medicine; ATTEND Internal Medicine